=== PATIENT | female | born 1940 | race African-American/Black ===

== ENCOUNTER 2023-12-20 12:51 | Emergency (ER) | payer MEDICARE, OTHER ==
[~2023-12-20] VITALS: Ht 165.1 cm; Wt 90.0 kg
[~2023-12-20 12:51] MED LIST: APIX5TAB PO; METO25TA6 PO
[2023-12-20 12:53] VITALS: O2SAT 98
[2023-12-20 13:49] LABS: BASOPHILS % 0.7 % (0.0-2.0); EOSINOPHILS % 1.4 % (0.0-5.0); HEMATOCRIT. 27.9 % (36.0-48.0); HEMOGLOBIN. 9.2 g/dL (12.0-16.0); LYMPHOCYTES % 9.7 % (20.0-50.0); MEAN CORPUSCULAR HGB CONC 33.1 g/dL (31.0-37.0); MEAN CORPUSCULAR VOLUME 102.7 fL (81.0-99.0); MEAN PLATELET VOLUME 11.2 fl (7.4-10.4); MONOCYTES % 0.9 % (2.0-8.0); NEUTROPHILS % 87.3 % (40.0-76.0); PLATELET 148 x1000/uL (130-400); RED BLOOD CELL COUNT 2.72 mill/uL (4.2-5.4); WHITE BLOOD COUNT 6.1 x1000/uL (4.5-11.0)
[2023-12-20] MEDS: ONDANSETRON HCL 4MG/2ML INJ IV ONE (13:49)
[2023-12-20] MEDS: ACETAMINOPHEN 1000MG/100ML 100 ML IV ONE (13:49)
[2023-12-20] MEDS: SODIUM CHLORIDE 0.9% 250 ML IV ONE (13:49)
[2023-12-20 13:52] LABS: CHLORIDE 111 mEq/L (98-107); POTASSIUM 3.5 mEq/L (3.5-5.1); SODIUM 144 mEq/L (136-145)
[2023-12-20 13:53] LABS: CARBON DIOXIDE 24 mEq/L (21-32)
[2023-12-20 13:54] LABS: CALCIUM 9.6 mg/dL (8.7-10.4)
[2023-12-20] MEDS: METOPROLOL TARTRATE 25MG TABLET PO ONE (13:55)
[2023-12-20 13:56] LABS: INR 1.1; PROTHROMBIN TIME 12.4 sec (9.6-11.0)
[2023-12-20 13:58] LABS: CREATININE 1.3 mg/dL (0.6-1.0); GLUCOSE 116 mg/dL (70-105)
[2023-12-20 13:59] LABS: TROPONIN I HIGH SENSITIVITY 9 ng/L (3.0-34); UREA NITROGEN BLOOD 10 mg/dL (9-23)
[2023-12-20 14:00] LABS: ALANINE AMINOTRANSFERASE 16 IU/L (10-49); ALBUMIN 3.9 g/dL (3.2-4.8); ASPARTATE AMINOTRANSFERASE 25 IU/L (<34); LACTIC ACID 3.4 mmol/L (0.4-2.0)
[2023-12-20 14:01] LABS: BILIRUBIN DIRECT 0.4 mg/dL (<=3.0); BILIRUBIN TOTAL 0.9 mg/dL (0.1-1.0); PROTEIN TOTAL 7.8 g/dL (6.0-8.3)
[2023-12-20 14:02] LABS: DIFFERENTIAL COMMENT 1
[2023-12-20 14:27] LABS: ADD RBC MORPHOLOGY YES
[2023-12-20 14:31] LABS: PLATELET ESTIMATE NORMAL
[2023-12-20 14:32] LABS: ANISOCYTOSIS 2+; OVALOCYTES FEW
[2023-12-20] MEDS: MORPHINE SULFATE 4 MG/ML INJ (FOR IV/IM USE) IV ONE (16:27)
[2023-12-20 18:33] VITALS: TEMP 36.94740
[2023-12-20 18:57] VITALS: TEMP 98.5
[2023-12-20] MEDS ORDERED: KETOROLAC 15MG/ML VIAL IV PRN (20:15)
[2023-12-20] MEDS ORDERED: GUAIFENESIN 200MG/10ML SUGAR FREE UDC PO PRN (20:15)
[2023-12-20] MEDS ORDERED: ONDANSETRON HCL 4MG/2ML INJ IV PRN (20:15)
[2023-12-20] MEDS ORDERED: SODIUM CHLORIDE 0.45% 1,000 ML IV SCH (20:15)
[2023-12-20] MEDS ORDERED: IPRATROPIUM/ALBUTEROL 0.5-3(2.5)MG/3ML NEB HHN PRN (20:15)
[2023-12-20] MEDS ORDERED: ACETAMINOPHEN 325MG TABLET PO PRN ×2 (20:15)
[2023-12-20] MEDS ORDERED: DOCUSATE SODIUM 100MG CAPSULE PO PRN (20:15)
[2023-12-20] MEDS ORDERED: CLONIDINE 0.1MG TABLET PO PRN (20:15)
[2023-12-20 20:22] VITALS: BP 167/78; PULSE 91; RESP 18; O2SAT 100
[2023-12-20] MEDS ORDERED: IPRATROPIUM/ALBUTEROL 0.5-3(2.5)MG/3ML NEB HHN SCH (20:45)
[2023-12-20] MEDS ORDERED: METOPROLOL TARTRATE 25MG TABLET PO SCH (21:00)
[2023-12-20] MEDS ORDERED: IOHEXOL-350 100 ML BOTTLE ONE (23:17)
[2023-12-20 23:21] LABS: IRON 103 ug/dL (50-170)
[2023-12-20 23:23] LABS: TOTAL IRON BINDING CAPACITY 248 ug/dl (250-425)
== END 2023-12-20 20:30 | disposition short-term general hospital (02) ==
LOC: ER 13:18 → EDBEDREQ 18:46 → ER 20:30
DX: R14.0 Abdominal distension (gaseous) (principal); I48.91 Unspecified atrial fibrillation; I25.10 Atherosclerotic heart disease of native coronary artery without angina pectoris; R11.2 Nausea with vomiting, unspecified; Z79.01 Long term (current) use of anticoagulants; Z79.02 Long term (current) use of antithrombotics/antiplatelets; Z79.82 Long term (current) use of aspirin; Z88.0 Allergy status to penicillin; Z88.1 Allergy status to other antibiotic agents
CPT/HCPCS: 99285; 74174; 96365; 96366; 96375; 80076; 80048; 83540; 83550; 83690; 85025; 85610; 87040; 87186; 84484; 87077; 36415; 84145; 83605; Q9967; J2405; J7050; C1893; J2270; J0131

== ENCOUNTER 2024-04-05 10:04 | Emergency (ER) | payer OTHER ==
[~2024-04-05] VITALS: Ht 162.6 cm; Wt 83.6 kg
[2024-04-05 10:45] VITALS: O2SAT 100
[2024-04-05 11:03] LABS: MEAN CORPUSCULAR HEMOGLOBIN 32.8 pg (28.0-32.0); MEAN CORPUSCULAR HGB CONC 33.4 g/dL (31.0-37.0); MEAN PLATELET VOLUME 11.6 fl (7.4-10.4); PLATELET 95 x1000/uL (130-400); RED BLOOD CELL COUNT 1.97 mill/uL (4.2-5.4); RED CELL DISTRIBUTION WIDTH 22.7 % (11.6-14.6)
[2024-04-05 11:08] LABS: CHLORIDE 106 mEq/L (98-107); SODIUM 139 mEq/L (136-145)
[2024-04-05 11:09] LABS: CALCIUM 8.7 mg/dL (8.7-10.4); CARBON DIOXIDE 27 mEq/L (21-32)
[2024-04-05 11:14] LABS: CREATININE 1.2 mg/dL (0.6-1.0); GLUCOSE 117 mg/dL (70-105); UREA NITROGEN BLOOD 33 mg/dL (9-23)
[2024-04-05 11:15] LABS: INR 1.2; PARTIAL THROMBOPLASTIN TIME 25.2 sec (23.4-31.0); PROTHROMBIN TIME 12.7 sec (9.6-11.0); TROPONIN I HIGH SENSITIVITY 5 ng/L (3.0-34)
[2024-04-05 11:22] LABS: DIFFERENTIAL COMMENT 1; HEMATOCRIT. 19.3 % (36.0-48.0); HEMOGLOBIN. 6.5 g/dL (12.0-16.0); WHITE BLOOD COUNT 1.1 x1000/uL (4.5-11.0)
[2024-04-05] MEDS: CEFTRIAXONE 1GM/50ML 50 ML IV ONE (12:56)
[2024-04-05] MEDS: AZITHROMYCIN 500MG/250ML 250 ML IV SCH (13:02)
[2024-04-05 13:29] LABS: PLATELET ESTIMATE DECREASED; ROULEAUX 1+
[2024-04-05 13:30] LABS: ANISOCYTOSIS 3+
[2024-04-05 16:08] VITALS: BP 121/40; PULSE 98; RESP 16; TEMP 36.9; O2SAT 100
[2024-04-05 16:39] LABS: INFLUENZA TYPE A Presumptive Negative (Pres. Neg.)
[2024-04-05 16:40] LABS: INFLUENZA TYPE B Presumptive Negative (Pres. Neg.)
== END 2024-04-05 16:08 | disposition short-term general hospital (02) ==
LOC: ER 10:04
DX: J18.9 Pneumonia, unspecified organism (principal); D61.818 Other pancytopenia; I10 Essential (primary) hypertension; I48.91 Unspecified atrial fibrillation; D46.9 Myelodysplastic syndrome, unspecified; Z79.899 Other long term (current) drug therapy; Z98.890 Other specified postprocedural states; Z79.01 Long term (current) use of anticoagulants; Z88.0 Allergy status to penicillin; Z88.1 Allergy status to other antibiotic agents
CPT/HCPCS: 36430; 80048; 83880; 85025; 85610; 85730; 86850; 86900; 86901; 86920; 84484; 87804 ×2; 36415; 71045; 93005; 96368; 96365; 99291; J0456; J0696; P9016